=== PATIENT | female | born 1980 | race Caucasian/White ===

== ENCOUNTER 2017-09-30 17:17 | Emergency (ER) | payer MEDICAID, OTHER ==
[2017-09-30 17:35] VITALS: BMI 35.5
[2017-09-30 19:52] VITALS: RESP 20
[2017-09-30] MEDS ORDERED: Sodium Chloride 0.9% 1,000 ML IV ONE (20:04)
[2017-09-30 20:36] LABS: BASO # 0.1 K/uL (0.0-0.2); BASO % 0.8 % (0.0-2.0); EOS # 0.1 K/uL (0.0-0.7); EOS % 1.3 % (0.0-4.0); HEMATOCRIT 41.7 % (34.0-47.0); LYMPH # 2.1 K/uL (1.0-4.3); LYMPH % 23.2 % (20.0-40.0); MEAN CELL VOLUME 91.3 fL (81.0-99.0); MEAN CORPUSCULAR HEMOGLOBIN 31.1 pg (27.0-31.0); MEAN PLATELET VOLUME 9.6 fL (7.2-11.7); MONO # 0.7 K/uL (0.0-0.8); MONO % 7.1 % (0.0-10.0); RED CELL DISTRIBUTION WIDTH 13.8 % (11.5-14.5); WHITE BLOOD COUNT 9.2 K/uL (4.8-10.8)
[2017-09-30] MEDS ORDERED: Sodium Chloride 0.9% 1,000 ML ONE (20:43)
[2017-09-30 20:49] LABS: ALB/GLOB RATIO 1.2 (1.0-2.1); ALKALINE PHOSPHATASE 92 U/L (38-126); ALT/SGPT 36 U/L (9-52); AST/SGOT 24 U/L (14-36); BILIRUBIN,TOTAL 0.5 mg/dL (0.2-1.3); BLOOD UREA NITROGEN 8 mg/dL (7-17); CALCIUM 9.1 mg/dl (8.6-10.4); CARBON DIOXIDE 29 mmol/L (22-30); CHLORIDE 99 mmol/L (98-107); GFR AFRICAN-AMERICAN > 60; GLUCOSE,RANDOM 98 mg/dL (65-105); POTASSIUM 3.7 mmol/L (3.6-5.2); SODIUM 134 mmol/L (132-148); TOTAL PROTEIN 7.7 g/dL (6.3-8.3)
[2017-09-30 21:09] LABS: RBC URINE 17 /hpf (0-3); TRANSITIONAL EPITHIAL < 1 /hpf (0-3); URINE BACTERIA RARE (<OCC); URINE BILIRUBIN NEGATIVE (NEGATIVE); URINE COLOR Yellow (YELLOW); URINE GLUCOSE (UA) NORMAL (Normal); URINE KETONE NEGATIVE (NEGATIVE); URINE LEUKOCYTE ESTERASE NEG Leu/uL (Negative); URINE PROTEIN NEGATIVE (NEGATIVE); URINE UROBILINOGEN NORMAL mg/dL (0.2-1.0); WBC URINE 2 /hpf (0-5)
[2017-09-30 21:11] LABS: URINE BLOOD 2+ (NEGATIVE)
--- NOTE | 2017-09-30 21:21 | C.PDOC ---
History Of Present Illness 37 year old female presents to the ER with a complaint of cramping abdominal discomfort for the past week. Patient has been taking codiene base pain meds for chronic pain but no stool softeners. Denies fever, vomiting, or diarrhea. Time Seen by Provider: 09/30/17 19:28 Chief Complaint (Nursing): Abdominal Pain History Per: Patient History/Exam Limitations: no limitations Onset/Duration Of Symptoms: Days Current Symptoms Are (Timing): Still Present Location Of Pain/Discomfort: Diffuse Radiation Of Pain To:: None Quality Of Discomfort: Unable To Describe Associated Symptoms: denies: Fever, Vomiting, Diarrhea Exacerbating Factors: None Alleviating Factors: None Recent travel outside of the [place]: No Abnormal Vaginal Bleeding: No Past Medical History Reviewed: Historical Data, Nursing Documentation, Vital Signs Vital Signs: Last Vital Signs Temp 98.3 F 09/30/17 21:57 Pulse 88 09/30/17 21:57 Resp 20 09/30/17 21:57 BP 110/75 09/30/17 21:57 Pulse Ox 97 09/30/17 21:57 - Medical History PMH: Anxiety, Asthma, Bipolar Disorder, Depression, HTN, Migraine Surgical History: Cholecystectomy Family History: States: Unknown Family Hx - Social History Hx Tobacco Use: Yes Hx Alcohol Use: No Hx Substance Use: No - Immunization History Hx Tetanus Toxoid Vaccination: Yes Hx Influenza Vaccination: Yes Hx Pneumococcal Vaccination: Yes Review Of Systems Constitutional: Negative for: Fever Gastrointestinal: Positive for: Abdominal Pain. Negative for: Vomiting, Diarrhea Physical Exam - Physical Exam Appears: Non-toxic, No Acute Distress Skin: Normal Color, Warm, Dry Head: Atraumatic, Normacephalic Eye(s): bilateral: Normal Inspection Oral Mucosa: Moist Chest: Symmetrical, No Tenderness Cardiovascular: Rhythm Regular Respiratory: Normal Breath Sounds, No Rales, No Rhonchi, No Wheezing Gastrointestinal/Abdominal: Soft, Tenderness (Vaguely tender), No Guarding, No Rebound, Other (Obese, alternating dull and tympanic with percussion) Neurological/Psych: Oriented x3, Normal Speech ED Course And Treatment - Laboratory Results Result Diagrams: 09/30/17 20:33 09/30/17 20:33 Lab Interpretation: Normal (ua neg.) Urine POC: Negative O2 Sat by Pulse Oximetry: 98 Pulse Ox Interpretation: Normal - Radiology CXR: Interpreted by Me CXR Interpretation: Yes: No Acute Disease - Other Rad abd x 2 X-Ray: Interpreted by Me (+FOS) Progress Note: EKG, blood work, urinalysis, and obstuctive series ordered. Pepcid, toradol, and IV fluids administered. Reevaluation Time: 21:20 Reassessment Condition: Improved (remains asymptomatic.) Medical Decision Making Medical Decision Making: probably chronic constipation due to diet and chronic codeine pain meds diet and stool softners educated. Disposition Doctor Will See Patient In The: Office Counseled Patient/Family Regarding: Studies Performed, Diagnosis - Disposition Referrals: Kentrell Petit MD [Medical Doctor] - Disposition: HOME/ ROUTINE Disposition Time: 21:20 Condition: GOOD Additional Instructions: take daily stool softners or occasional laxatives as needed if you continue chronic Codeine for chronic pain as the narcotic pain relievers are very constipating. normal eval today negative. Drink a bottle of Mag Citrate (laxative) now for immediate relief. Followup with your PMD as needed. Instructions: Constipation (ED) Forms: [employer] (Czech) - Clinical Impression Clinical Impression: Abdominal pain, Constipation - Scribe Statement The provider has reviewed the documentation as recorded by the Scribe Shahid Rubalcava All medical record entries made by the Scribe were at my direction and personally dictated by me. I have reviewed the chart and agree that the record accurately reflects my personal performance of the history, physical exam, medical decision making, and the department course for this patient. I have also personally directed, reviewed, and agree with the discharge instructions and disposition.
[2017-09-30 21:58] VITALS: BP 110/75; PULSE 88; TEMP 98.3
[2017-10-01 03:00] VITALS: O2SAT 98
--- NOTE | 2017-10-01 07:19 | RAD ---
PROCEDURE: Radiographs of the chest and abdomen (obstructive series) HISTORY: abd pain COMPARISON: No prior. TECHNIQUE: AP radiograph of the chest, with upright and supine radiographs of the abdomen. FINDINGS: CHEST: Lungs: Clear. Cardiovascular: Normal size heart. No pulmonary vascular congestion. Pleura: No pleural fluid. No pneumothorax. Other findings: None. ABDOMEN AND PELVIS: Bowel: Unremarkable bowel gas pattern. No evidence of mechanical obstruction. Free air: None. Bones: Unremarkable. Other findings: Surgical clips are seen at the right upper quadrant abdomen. IMPRESSION: Unremarkable radiographs of chest and abdomen. No evidence of mechanical bowel obstruction. Surgical clips are seen the right upper quadrant abdomen.
--- NOTE | 2017-10-02 12:43 | CARD ---
APPROVED REPORT EKG Measurement Heart [id number] <Conclusion> Normal sinus rhythm with sinus arrhythmia Normal Electrocardiogram
== END 2017-09-30 22:05 | disposition home or self-care (01) ==
LOC: C.ER 17:17
DX: K59.00 Constipation, unspecified (principal); R10.9 Unspecified abdominal pain; I10 Essential (primary) hypertension; Z87.891 Personal history of nicotine dependence
CPT/HCPCS: 74022; 80053; 81001; 83690; 84484; 84703; 85025; 93005; 96361; 96374; 99285; J7040

== ENCOUNTER 2018-02-13 22:34 | Emergency (ER) | payer MEDICAID, OTHER ==
[2018-02-13 22:35] VITALS: BMI 35.5
[2018-02-13 22:45] VITALS: TEMP 98.8
[2018-02-13] MEDS ORDERED: Sodium Chloride 0.9% 500 ML IV ONE (23:02)
[2018-02-13 23:14] LABS: BASO # 0.1 K/uL (0.0-0.2); BASO % 0.9 % (0.0-2.0); EOS # 0.3 K/uL (0.0-0.7); EOS % 2.4 % (0.0-4.0); LYMPH % 31.9 % (20.0-40.0); MEAN CELL VOLUME 91.1 fL (81.0-99.0); MEAN CORPUSCULAR HEMOGLOBIN 31.5 pg (27.0-31.0); MEAN CORPUSCULAR HGB CONC 34.5 g/dL (33.0-37.0); MEAN PLATELET VOLUME 9.3 fL (7.2-11.7); MONO # 0.8 K/uL (0.0-0.8); MONO % 6.4 % (0.0-10.0); NEUT # 7.3 K/uL (1.8-7.0); NEUT % 58.4 % (50.0-75.0); RBC 3.81 Mil/uL (3.80-5.20); RED CELL DISTRIBUTION WIDTH 13.5 % (11.5-14.5); WHITE BLOOD COUNT 12.5 K/uL (4.8-10.8)
[2018-02-13] MEDS ORDERED: DiphenhydrAMINE 50 mg/ml Inj IVP STA (23:20)
[2018-02-13 23:28] LABS: ALBUMIN 3.5 g/dL (3.5-5.0); ALT/SGPT 26 U/L (9-52); AST/SGOT 21 U/L (14-36); BLOOD UREA NITROGEN 10 mg/dL (7-17); CALCIUM 9.1 mg/dl (8.6-10.4); GFR AFRICAN-AMERICAN > 60; GFR NON-AFRICAN AMERICAN > 60
[2018-02-13] MEDS ORDERED: DiphenhydrAMINE 50 mg/ml Inj ONE (23:29)
[2018-02-14] MEDS ORDERED: Morphine 4 MG/ML VIAL ONE (00:01)
--- NOTE | 2018-02-14 00:11 | CT ---
EXAM: CT Head Without Intravenous Contrast CLINICAL HISTORY: 37 years old, female; Pain; Headache; Patient HX: 02-19-16 images sent TECHNIQUE: Axial computed tomography images of the head/brain without intravenous contrast. All CT scans at this facility use one or more dose reduction techniques, viz.: automated exposure control; ma/kV adjustment per patient size (including targeted exams where dose is matched to indication; i.e. head); or iterative reconstruction technique. COMPARISON: CT - HEAD W/O CONTRAST 2016-02-19 10:31 FINDINGS: Brain: No hemorrhage. No significant white matter disease. No edema. Ventricles: No hydrocephalus. Bones: Skull is intact. Sinuses: No acute sinusitis. Mastoid air cells: No mastoid effusion. IMPRESSION: No CT evidence of acute intracranial abnormality.
[2018-02-14 00:12] LABS: SQUAMOUS EPITHIAL 5 /hpf (0-5); URINE BILIRUBIN NEGATIVE (NEGATIVE); URINE BLOOD 1+ (NEGATIVE); URINE CLARITY Clear (Clear); URINE COLOR Straw (YELLOW); URINE GLUCOSE (UA) NORMAL (Normal); URINE LEUKOCYTE ESTERASE NEG Leu/uL (Negative); URINE PROTEIN NEGATIVE (NEGATIVE); URINE UROBILINOGEN NORMAL mg/dL (0.2-1.0)
--- NOTE | 2018-02-14 00:26 | C.PDOC ---
History Of Present Illness 37 year old female with PMH asthma presents to the ER with a complaint of sore throat for the past 5 days, associated with neck pain, and headache. Patient states she was seen by her PMD Dr. Petit 4 days ago who started her on a z-pack which she finished today, however, pain persists. Reports subjective fever BARREL BANDER for which she took tylenol. States she got blisters to her lips yesterday. Denies sob, chest pain, change in vision, difficulty breathing, or difficulty swallowing. Time Seen by Provider: 02/13/18 22:48 Chief Complaint (Nursing): ENT Problem History Per: Patient History/Exam Limitations: no limitations Onset/Duration Of Symptoms: Days Current Symptoms Are (Timing): Still Present Location Of Pain: Throat, Headache, Other (Neck) Sick Contacts (Context): None Associated Symptoms: Fever, Sore Throat, Other (Headache, blisters on lips) Ear Symptoms: Bilateral: None Recent travel outside of the [place]: No Past Medical History Reviewed: Historical Data, Nursing Documentation, Vital Signs Vital Signs: Last Vital Signs Temp 98.8 F 02/13/18 22:42 Pulse 83 02/14/18 01:37 Resp 18 02/14/18 01:37 BP 108/70 02/14/18 01:37 Pulse Ox 96 02/14/18 01:37 - Medical History PMH: Anxiety, Asthma, Bipolar Disorder, Depression, HTN, Migraine Surgical History: Cholecystectomy Family History: States: Unknown Family Hx - Social History Hx Tobacco Use: Yes Hx Alcohol Use: No Hx Substance Use: No - Immunization History Hx Tetanus Toxoid Vaccination: Yes Hx Influenza Vaccination: Yes Hx Pneumococcal Vaccination: Yes Review Of Systems Constitutional: Positive for: Fever Eyes: Negative for: Vision Change ENT: Positive for: Throat Pain, Other (Blisters on lips). Negative for: Throat Swelling Respiratory: Negative for: Shortness of Breath Musculoskeletal: Positive for: Neck Pain Neurological: Positive for: Headache Physical Exam - Physical Exam Appears: Non-toxic, Other (uncomfortable) Skin: Normal Color, Warm, Dry Head: Atraumatic, Normacephalic Eye(s): bilateral: Normal Inspection, EOMI Ear(s): Bilateral: Normal Nose: Normal Oral Mucosa: Moist Lips: Other (multiple 2mm ulcerations on erythematous base to top lip with surrounding swelling, some on bottom lip) Throat: Normal, No Erythema, No Exudate Neck: Normal ROM, No Midline Cervical Tenderness, Paracervical Tenderness (with muscle spasm) Lymphatic: Normal Exam Chest: Symmetrical, No Tenderness Cardiovascular: Rhythm Regular Respiratory: Normal Breath Sounds, No Rales, No Rhonchi, No Wheezing Gastrointestinal/Abdominal: Soft, No Tenderness Extremity: Normal ROM Neurological/Psych: Oriented x3, Normal Speech, Normal Cognition, Normal Cranial Nerves (2-12 intact, no focal deficits), Normal Sensation ED Course And Treatment - Laboratory Results Result Diagrams: 02/13/18 23:10 02/13/18 23:10 O2 Sat by Pulse Oximetry: 96 (room air) Pulse Ox Interpretation: Normal - CT Scan/US CT Head Other Rad Studies (CT/US): Read By Radiologist, Radiology Report Reviewed CT/US Interpretation: EXAM: CT Head Without Intravenous Contrast. CLINICAL HISTORY: 37 years old, female; Pain; Headache; Patient HX: 02-19-16 images sent. TECHNIQUE: Axial computed tomography images of the head/brain without intravenous contrast. All CT scans at. this facility use one or more dose reduction techniques, viz.: automated exposure control; ma/kV. adjustment per patient size (including targeted exams where dose is matched to indication; i.e. head);. or iterative reconstruction technique. COMPARISON: CT - HEAD W/ O CONTRAST 2016-02-19 10:31. FINDINGS: Brain: No hemorrhage. No significant white matter disease. No edema. Ventricles: No hydrocephalus. Bones: Skull is intact. Sinuses: No acute sinusitis. Mastoid air cells: No mastoid effusion. IMPRESSION: No CT evidence of acute intracranial abnormality. CT Neck Other Rad Studies (CT/US): Read By Radiologist, Radiology Report Reviewed CT/US Interpretation: EXAM: CT Neck Without Intravenous Contrast. CLINICAL HISTORY: 37 years old, female; Pain; Painful swallowing. TECHNIQUE: Axial computed tomography images of the neck without intravenous contrast. All CT scans at this. facility use one or more dose reduction techniques, viz.: automated exposure control; ma/kV. adjustment per patient size (including targeted exams where dose is matched to indication; i.e. head);. or iterative reconstruction technique. Coronal and sagittal reformatted images were created and reviewed. COMPARISON: No relevant prior studies available. FINDINGS: Limitations: Lack of intravenous contrast. Oropharynx: Unremarkable. No significant tonsillar enlargement. Hypopharynx: Unremarkable. Larynx: Unremarkable. Normal epiglottis. Trachea: Unremarkable. Retropharyngeal space : Unremarkable. Submandibular/parotid glands: Unremarkable. Glands are normal in size. Thyroid: Unremarkable. No enlarged or calcified nodules. Bones/joints : No acute fracture. Early degenerative changes of cervical spine. Soft tissues : Unremarkable. Vasculature: No acute findings. Lymph nodes: Multiple shotty cervical lymph nodes. Sinuses: Mild focal mucosal thickening of maxillary sinuses, left greater than right. Minimal focal. mucosal thickening of RIGHT sphenoid sinus. No air-fluid levels. Mastoid air cells: No mastoid effusion. Orbits: Unremarkable as visualized. Dental: Several periapical lucencies compatible with dental disease. Lung apices: Unremarkable as visualized. IMPRESSION: 1. No acute findings. 2. Non-acute findings are described above. Progress Note: CT head, CT neck, blood work, rapid strep, and urinalysis ordered. Benadryl, morphine, solumedrol, and IV fluids administered. On re- evaluation, pt notes she feels better, does not want any additional medication. Notes headache has resolved, neck pain has improved. Tolerating PO. No difficulty breathing or swallowing. REmains afebrile. Pt was seen and evaluated by Dr Mcelroy, agreed upon plan, treatment and discharge. Disposition - Disposition Disposition: HOME/ ROUTINE Disposition Time: 01:02 Condition: STABLE Additional Instructions: Follow up with your primary medical doctor or clinic in 2-5 days for further evaluation. Take medications as prescribed. Return to the emergency department at any time if symptoms persist or worsen. Prescriptions: Acyclovir [Zovirax] 800 mg PO TID 10 Days tab Cyclobenzaprine [Cyclobenzaprine HCl] 10 mg PO TID PRN #20 tab PRN Reason: Muscle Spasm DiphenhydrAMINE [Benadryl] 25 mg PO Q6 #20 cap Instructions: Headache, Adult (DC) Forms: [employer] (Malagasy) - Clinical Impression Clinical Impression: Torticollis, Viral illness - PA / GENERAL ACTIVITIES THERAPIST / Resident Statement MD/DO has reviewed & agrees with the documentation as recorded. - Scribe Statement The provider has reviewed the documentation as recorded by the Scribe Shahid Rubalcava All medical record entries made by the Scribe were at my direction and personally dictated by me. I have reviewed the chart and agree that the record accurately reflects my personal performance of the history, physical exam, medical decision making, and the department course for this patient. I have also personally directed, reviewed, and agree with the discharge instructions and disposition.
--- NOTE | 2018-02-14 00:34 | CT ---
EXAM: CT Neck Without Intravenous Contrast CLINICAL HISTORY: 37 years old, female; Pain; Painful swallowing TECHNIQUE: Axial computed tomography images of the neck without intravenous contrast. All CT scans at this facility use one or more dose reduction techniques, viz.: automated exposure control; ma/kV adjustment per patient size (including targeted exams where dose is matched to indication; i.e. head); or iterative reconstruction technique. Coronal and sagittal reformatted images were created and reviewed. COMPARISON: No relevant prior studies available. FINDINGS: Limitations: Lack of intravenous contrast. Oropharynx: Unremarkable. No significant tonsillar enlargement. Hypopharynx: Unremarkable. Larynx: Unremarkable. Normal epiglottis. Trachea: Unremarkable. Retropharyngeal space: Unremarkable. Submandibular/parotid glands: Unremarkable. Glands are normal in size. Thyroid: Unremarkable. No enlarged or calcified nodules. Bones/joints: No acute fracture. Early degenerative changes of cervical spine. Soft tissues: Unremarkable. Vasculature: No acute findings. Lymph nodes: Multiple shotty cervical lymph nodes. Sinuses: Mild focal mucosal thickening of maxillary sinuses, left greater than right. Minimal focal mucosal thickening of RIGHT sphenoid sinus. No air-fluid levels. Mastoid air cells: No mastoid effusion. Orbits: Unremarkable as visualized. Dental: Several periapical lucencies compatible with dental disease. Lung apices: Unremarkable as visualized. IMPRESSION: 1.No acute findings. 2.Non-acute findings are described above.
[2018-02-14 01:38] VITALS: BP 108/70; PULSE 83; RESP 18; O2SAT 96
== END 2018-02-14 01:37 | disposition home or self-care (01) ==
LOC: C.ER 22:34
DX: M43.6 Torticollis (principal); B34.9 Viral infection, unspecified
CPT/HCPCS: 70450; 70490; 80053; 81001; 84703; 85025; 86308; 87070; 87430; 96374; 96375; 99284; J1200; J2270; J2930; J7040

== ENCOUNTER 2018-03-18 09:31 | Emergency (ER) | payer OTHER ==
[2018-03-18 09:34] VITALS: BMI 31.2
[2018-03-18 11:12] LABS: BASO # 0.1 K/uL (0.0-0.2); BASO % 0.7 % (0.0-2.0); EOS # 0.3 K/uL (0.0-0.7); EOS % 2.9 % (0.0-4.0); HEMOGLOBIN 12.5 g/dL (11.0-16.0); LYMPH # 3.6 K/uL (1.0-4.3); LYMPH % 32.7 % (20.0-40.0); MEAN CELL VOLUME 95.1 fL (81.0-99.0); MEAN CORPUSCULAR HGB CONC 34.7 g/dL (33.0-37.0); MEAN PLATELET VOLUME 9.7 fL (7.2-11.7); MONO # 0.6 K/uL (0.0-0.8); MONO % 5.8 % (0.0-10.0); NEUT # 6.4 K/uL (1.8-7.0); NEUT % 57.9 % (50.0-75.0); RBC 3.78 Mil/uL (3.80-5.20); RED CELL DISTRIBUTION WIDTH 15.7 % (11.5-14.5)
[2018-03-18 11:18] LABS: HCG,QUALITATIVE URINE NEGATIVE (NEGATIVE)
[2018-03-18 11:22] LABS: SQUAMOUS EPITHIAL 3 /hpf (0-5); URINE BILIRUBIN NEGATIVE (NEGATIVE); URINE BLOOD 1+ (NEGATIVE); URINE CLARITY Clear (Clear); URINE COLOR Yellow (YELLOW); URINE GLUCOSE (UA) NORMAL (Normal); URINE LEUKOCYTE ESTERASE NEG Leu/uL (Negative); URINE PROTEIN NEGATIVE (NEGATIVE)
--- NOTE | 2018-03-18 11:22 | RAD ---
PROCEDURE: Radiographs of the chest and abdomen HISTORY: abd pain COMPARISON: Obstructive series dated 09/30/2017. TECHNIQUE: AP radiograph of the chest, with supine radiograph of the abdomen. FINDINGS: CHEST: Lungs: Clear. Cardiovascular: Normal size heart. No pulmonary vascular congestion. Pleura: No pleural fluid. No pneumothorax. Other findings: None. ABDOMEN AND PELVIS: Bowel: Prominent amount of retained colonic stool. Unremarkable bowel gas pattern. No evidence of mechanical obstruction. Bones: Unremarkable. Other findings: Right upper quadrant surgical clips. IMPRESSION: Unremarkable radiographs of chest and abdomen. Prominent amount of retained colonic stool.
[2018-03-18 11:27] LABS: ALB/GLOB RATIO 1.4 (1.0-2.1); ALT/SGPT 51 U/L (9-52); AST/SGOT 41 U/L (14-36); BLOOD UREA NITROGEN 11 mg/dL (7-17); CALCIUM 8.7 mg/dl (8.6-10.4); GFR AFRICAN-AMERICAN > 60; GFR NON-AFRICAN AMERICAN > 60; LIPASE 39 U/L (23-300)
[2018-03-18] MEDS ORDERED: Sodium Chloride 0.9% 1,000 ML IV ONE (11:35)
--- NOTE | 2018-03-18 11:35 | C.PDOC ---
History Of Present Illness 37 y/o female with Hx of diverticulitis presents to ED for complaints of lower abdominal pain associated with nausea and bloody urine that began 1 week ago. Patient reports pain radiates to lower back. Patient states she saw her PCP 1 week ago. Patient states she has an appointment on the for an Ultrasound, however, her pain worsened which prompted the ER visit. Time Seen by Provider: 03/18/18 10:07 Chief Complaint (Nursing): Female Genitourinary History Per: Patient History/Exam Limitations: no limitations Onset/Duration Of Symptoms: Days Current Symptoms Are (Timing): Still Present Location Of Pain/Discomfort: LUQ, LLQ Radiation Of Pain To:: Back Quality Of Discomfort: "Pain" Associated Symptoms: Nausea. denies: Fever, Chills, Vomiting Exacerbating Factors: None Alleviating Factors: None Last Bowel Movement: Today Recent travel outside of the [place]: No Abnormal Vaginal Bleeding: No Past Medical History Reviewed: Historical Data, Nursing Documentation, Vital Signs Vital Signs: Last Vital Signs Temp 98.2 F 03/18/18 15:22 Pulse 87 03/18/18 15:22 Resp 18 03/18/18 15:22 BP 121/80 03/18/18 15:22 Pulse Ox 98 03/18/18 15:22 - Medical History PMH: Anxiety, Asthma, Bipolar Disorder, Depression, HTN, Migraine Surgical History: Cholecystectomy Family History: States: Unknown Family Hx - Social History Hx Tobacco Use: Yes Hx Alcohol Use: No Hx Substance Use: No - Immunization History Hx Tetanus Toxoid Vaccination: Yes Hx Influenza Vaccination: Yes Hx Pneumococcal Vaccination: Yes Review Of Systems Constitutional: Negative for: Fever, Chills Gastrointestinal: Positive for: Nausea, Abdominal Pain (Lower abdominal; radiates to back ). Negative for: Vomiting, Diarrhea, Constipation Genitourinary: Positive for: Hematuria. Negative for: Dysuria Skin: Negative for: Rash Neurological: Negative for: Weakness, Numbness Physical Exam - Physical Exam Appears: Non-toxic, No Acute Distress Skin: Warm, Dry Head: Atraumatic, Normacephalic Eye(s): bilateral: Normal Inspection, PERRL, EOMI Oral Mucosa: Moist Neck: Supple Chest: Symmetrical, No Tenderness Cardiovascular: Rhythm Regular, No Murmur Respiratory: Normal Breath Sounds, No Decreased Breath Sounds, No Rales, No Rhonchi, No Wheezing Gastrointestinal/Abdominal: Soft, Tenderness (Mild inconsistent lower abdomen ) Extremity: Normal ROM, No Deformity Extremity: Bilateral: Atraumatic, Normal Color And Temperature, Normal ROM Pulses: Left Radial: Normal, Right Radial: Normal Neurological/Psych: Oriented x3 (Awake and alert), Normal Speech, Other (No focal deficits ) Gait: Steady ED Course And Treatment - Laboratory Results Result Diagrams: 03/18/18 10:57 03/18/18 10:57 O2 Sat by Pulse Oximetry: 99 (RA) Pulse Ox Interpretation: Normal - Other Rad Chext/Abdomen X-Ray X-Ray: Viewed By Me, Read By Radiologist Interpretation: PROCEDURE: Radiographs of the chest and abdomen. HISTORY: abd pain. COMPARISON: Obstructive series dated 09/30/2017. TECHNIQUE: AP radiograph of the chest, with supine radiograph of the abdomen. FINDINGS: CHEST: Lungs: Clear. Cardiovascular: Normal size heart. No pulmonary vascular congestion. Pleura: No pleural fluid. No pneumothorax. Other findings: None. ABDOMEN AND PELVIS: Bowel: Prominent amount of retained colonic stool. Unremarkable bowel gas pattern. No evidence of mechanical obstruction. Bones: Unremarkable. Other findings: Right upper quadrant surgical clips. IMPRESSION : Unremarkable radiographs of chest and abdomen. Prominent amount of retained colonic stool. Medical Decision Making Medical Decision Making: Administered pepcid, zofran, lidocaine and IV fluids. Patient was offered pelvic exam, exams declined at this time, and stating that she has no vaginal bleeding, discharged or other pelvic complaints. Ordered blood work, CXR, Abdomen X-Ray, and urinalysis. On re-exam, the patient reports improvement of symptoms. Abdomen is soft, non- tender and the patient is tolerating PO well. Lungs are CTA, heart is RRR. Patient is ambulatory in the ED with steady gait. Follow up with the medical doctor within 1-2 days. return if worsened. Disposition - Disposition Referrals: Kentrell Petit MD [Medical Doctor] - Disposition: HOME/ ROUTINE Disposition Time: 14:46 Condition: STABLE Additional Instructions: Follow up with the medical doctor within 1-2 days. Return if worsened. Prescriptions: Acetaminophen [Tylenol] 325 mg PO Q6 PRN #30 tab PRN Reason: Pain, Mild (1-3) Ibuprofen [Motrin Tab] 800 mg PO TID #20 tab Instructions: Ovarian Cysts, Gastritis Forms: [employer] (Kiswahili) - Clinical Impression Clinical Impression: Ovarian cyst, Abdominal pain - PA / [employer] WORKER / Resident Statement MD/DO has reviewed & agrees with the documentation as recorded. - Scribe Statement The provider has reviewed the documentation as recorded by the Miller Hogan All medical record entries made by the Miller were at my direction and personally dictated by me. I have reviewed the chart and agree that the record accurately reflects my personal performance of the history, physical exam, medical decision making, and the department course for this patient. I have also personally directed, reviewed, and agree with the discharge instructions and disposition.
[2018-03-18] MEDS ORDERED: Lidocaine 109 MG in Sodium Chloride 0.9% 100 ML IV STA (11:36)
[2018-03-18] MEDS ORDERED: Sodium Chloride 0.9% 1,000 ML ONE (11:57)
[2018-03-18] MEDS ORDERED: Iohexol 240 (50 ml) ONE (12:15)
[2018-03-18] MEDS ORDERED: Morphine 4 MG/ML VIAL ONE (14:03)
--- NOTE | 2018-03-18 14:10 | CT ---
PROCEDURE: CT Abdomen and Pelvis with contrast HISTORY: lower abd pain, r/o diverticulitis vs renal stone COMPARISON: None. TECHNIQUE: Contrast dose: 100 mL Visipaque 320 Radiation dose: Total exam DLP = 747.7 mGy-cm. This CT exam was performed using one or more of the following dose reduction techniques: Automated exposure control, adjustment of the mA and/or kV according to patient size, and/or use of iterative reconstruction technique. FINDINGS: LOWER THORAX: Mild subsegmental lingular atelectasis. No focal consolidation. Heart size normal. LIVER: Unremarkable. No gross lesion or ductal dilatation. GALLBLADDER AND BILE DUCTS: Prior cholecystectomy with surgical clips in place. PANCREAS: Unremarkable. No gross lesion or ductal dilatation. SPLEEN: Unremarkable. ADRENALS: Unremarkable. No mass. KIDNEYS AND URETERS: Unremarkable. No hydronephrosis. No solid mass. VASCULATURE: Unremarkable. No aortic aneurysm. BOWEL: Scattered colonic diverticulae. No obstruction. No gross mural thickening. APPENDIX: Normal appendix. PERITONEUM: Unremarkable. No free fluid. No free air. LYMPH NODES: Unremarkable. No enlarged lymph nodes. BLADDER: Unremarkable. REPRODUCTIVE: Dominant right ovarian follicle measuring 2.1 cm. BONES: No acute fracture. OTHER FINDINGS: None. IMPRESSION: No acute abdominal pelvic pathology. No obstructive uropathy or evidence of recently passed genitourinary calculus. Scattered colonic diverticula without evidence for acute diverticulitis.
[2018-03-18 15:24] VITALS: BP 121/80; PULSE 87; RESP 18; TEMP 98.2
[2018-03-19 08:32] VITALS: O2SAT 99
== END 2018-03-18 15:22 | disposition home or self-care (01) ==
LOC: C.ER 09:31
DX: N83.209 Unspecified ovarian cyst, unspecified side (principal); R10.32 Left lower quadrant pain
CPT/HCPCS: 74022; 74177; 80053; 81001; 83690; 84703; 85025; 96361; 96374; 96375; 99285; J2001; J2270; J2405; J7030

== ENCOUNTER 2018-03-20 09:57 | Emergency (ER) | payer OTHER ==
[2018-03-20 09:57] VITALS: BMI 31.2
[2018-03-20 10:04] VITALS: O2SAT 99
[2018-03-20 10:27] LABS: HCG,QUALITATIVE URINE NEGATIVE (NEGATIVE)
[2018-03-20 10:30] LABS: SQUAMOUS EPITHIAL 4 /hpf (0-5); URINE BILIRUBIN NEGATIVE (NEGATIVE); URINE BLOOD 2+ (NEGATIVE); URINE CLARITY Clear (Clear); URINE COLOR Yellow (YELLOW); URINE GLUCOSE (UA) NORMAL (Normal); URINE LEUKOCYTE ESTERASE NEG Leu/uL (Negative); URINE PROTEIN NEGATIVE (NEGATIVE); URINE UROBILINOGEN NORMAL mg/dL (0.2-1.0)
--- NOTE | 2018-03-20 10:47 | C.PDOC ---
History Of Present Illness 37 year old female, whose PMHx includes Migraines, presents to the ED for evaluation of a headache which had sudden onset at around 0900 today. Patient states she went to use the bathroom when she suddenly had pain to the back of her head which radiates to the front. She states current symptoms are different than her usual migraine headaches. Patient also reports nausea and denies fever , chills, vision change, photophobia or facial pain. Time Seen by Provider: 03/20/18 10:31 Chief Complaint (Nursing): Headache History Per: Patient History/Exam Limitations: no limitations Onset/Duration Of Symptoms: Hrs, Sudden Onset Current Symptoms Are (Timing): Still Present Quality: "Pain" Associated Symptoms: Nausea. denies: Photophobia, Blurred Vision Past Medical History Reviewed: Historical Data, Nursing Documentation, Vital Signs Vital Signs: Last Vital Signs Temp 98.9 F 03/20/18 13:07 Pulse 60 03/20/18 13:07 Resp 20 03/20/18 13:07 BP 133/72 03/20/18 13:07 Pulse Ox 99 03/20/18 13:10 - Medical History PMH: Anxiety, Asthma, Bipolar Disorder, Depression, HTN, Migraine Denies: Diabetes, Hepatitis, HIV, Seizures, Sexually Transmitted Disease Surgical History: Cholecystectomy Family History: States: Unknown Family Hx - Social History Hx Tobacco Use: Yes Hx Alcohol Use: No Hx Substance Use: No - Immunization History Hx Tetanus Toxoid Vaccination: Yes Hx Influenza Vaccination: Yes Hx Pneumococcal Vaccination: Yes Review Of Systems Constitutional: Negative for: Fever, Chills Eyes: Negative for: Vision Change, Other (photophobia ) Gastrointestinal: Positive for: Nausea. Negative for: Vomiting Physical Exam - Physical Exam Appears: Non-toxic, No Acute Distress Skin: Normal Color, Warm, Dry Head: Atraumatic, Normacephalic, No Tenderness, No Other (temporal artery tenderness ) Eye(s): bilateral: Normal Inspection Ear(s): Bilateral: Normal Nose: Normal, No Discharge Oral Mucosa: Moist Neck: Normal ROM, Supple Chest: Symmetrical, No Deformity, No Tenderness Cardiovascular: Rhythm Regular, No Murmur Respiratory: Normal Breath Sounds, No Rales, No Rhonchi, No Wheezing Gastrointestinal/Abdominal: Bowel Sounds (active), Soft, No Tenderness Extremity: Normal ROM, Capillary Refill (less than 2 seconds ) Neurological/Psych: Oriented x3, Normal Speech, Normal Cognition, Normal Motor, Normal Sensation Gait: Steady ED Course And Treatment - Laboratory Results Result Diagrams: 03/20/18 11:17 03/20/18 11:17 O2 Sat by Pulse Oximetry: 99 (on RA) Pulse Ox Interpretation: Normal - CT Scan/US CT head w/o contrast Other Rad Studies (CT/US): Read By Radiologist, Radiology Report Reviewed CT/US Interpretation: PROCEDURE: CT HEAD WITHOUT CONTRAST. HISTORY: headache , nausea. COMPARISON: 02/13/2018. TECHNIQUE: Axial computed tomography images were obtained through the head/brain without intravenous contrast. Radiation dose: Total exam DLP = 973.15 mGy-cm. This CT exam was performed using one or more of the following dose reduction techniques: Automated exposure control, adjustment of the mA and/or kV according to patient size, and/ or use of iterative reconstruction technique. FINDINGS: HEMORRHAGE: No intracranial hemorrhage. BRAIN: No mass effect or edema. No atrophy or chronic microvascular ischemic changes. VENTRICLES: Unremarkable. No hydrocephalus. CALVARIUM: Unremarkable. PARANASAL SINUSES: Unremarkable as visualized. No significant inflammatory changes. MASTOID AIR CELLS: Unremarkable as visualized. No inflammatory changes. OTHER FINDINGS: None. IMPRESSION: Normal CT of the Head. Medical Decision Making Medical Decision Making: Old records reviewed the patient was last seen in this ED 2 days ago for abdominal pain, had CT scan which was negative and the patient was discharged home. Progress: CT Head and urinalysis ordered and reviewed. Benadryl IVP, Reglan IVPB, and IV Fluids administered. On first re-exam, the patient reports that the pain improvement slightly but still present. Fiorcet PO ordered. On re-exam, the patient reports improvement of symptoms. Lungs are CTA, heart is RRR, abdomen is soft, non-tender and tolerating PO well. Ambulatory in the ED with steady gait. Follow up with the medical doctor within 1-2 days. Return if worsened. Disposition - Disposition Referrals: [facility] [Outside] Disposition: HOME/ ROUTINE Disposition Time: 13:01 Condition: GOOD Additional Instructions: Follow up with the medical doctor within 1-2 days. Return if worsened. 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 - Scribe Statement The provider has reviewed the documentation as recorded by the Scribe All medical record entries made by the Scribe were at my direction and personally dictated by me. I have reviewed the chart and agree that the record accurately reflects my personal performance of the history, physical exam, medical decision making, and the department course for this patient. I have also personally directed, reviewed, and agree with the discharge instructions and disposition.
[2018-03-20] MEDS ORDERED: DiphenhydrAMINE 50 mg/ml Inj IVP STA (11:04)
[2018-03-20] MEDS ORDERED: Sodium Chloride 0.9% 500 ML IV ONE (11:07)
[2018-03-20] MEDS ORDERED: DiphenhydrAMINE 50 mg/ml Inj ONE (11:18)
[2018-03-20] MEDS ORDERED: Sodium Chloride 0.9% 1,000 ML ONE (11:18)
[2018-03-20 11:24] LABS: BASO # 0.1 K/uL (0.0-0.2); BASO % 0.5 % (0.0-2.0); EOS # 0.1 K/uL (0.0-0.7); EOS % 0.8 % (0.0-4.0); HEMOGLOBIN 12.8 g/dL (11.0-16.0); LYMPH # 1.7 K/uL (1.0-4.3); LYMPH % 13.5 % (20.0-40.0); MEAN CELL VOLUME 94.1 fL (81.0-99.0); MEAN CORPUSCULAR HEMOGLOBIN 32.2 pg (27.0-31.0); MEAN CORPUSCULAR HGB CONC 34.3 g/dL (33.0-37.0); MEAN PLATELET VOLUME 9.5 fL (7.2-11.7); MONO # 0.6 K/uL (0.0-0.8); MONO % 5.1 % (0.0-10.0); NEUT % 80.1 % (50.0-75.0); RBC 3.98 Mil/uL (3.80-5.20); RED CELL DISTRIBUTION WIDTH 15.5 % (11.5-14.5); WHITE BLOOD COUNT 12.5 K/uL (4.8-10.8)
[2018-03-20 11:34] LABS: ALB/GLOB RATIO 1.4 (1.0-2.1); ALBUMIN 4.2 g/dL (3.5-5.0); ALT/SGPT 45 U/L (9-52); AST/SGOT 29 U/L (14-36); BLOOD UREA NITROGEN 9 mg/dL (7-17); CALCIUM 9.6 mg/dl (8.6-10.4); GFR AFRICAN-AMERICAN > 60; GFR NON-AFRICAN AMERICAN > 60
--- NOTE | 2018-03-20 11:47 | CT ---
PROCEDURE: CT HEAD WITHOUT CONTRAST. HISTORY: headache, nausea COMPARISON: 02/13/2018 TECHNIQUE: Axial computed tomography images were obtained through the head/brain without intravenous contrast. Radiation dose: Total exam DLP = 973.15 mGy-cm. This CT exam was performed using one or more of the following dose reduction techniques: Automated exposure control, adjustment of the mA and/or kV according to patient size, and/or use of iterative reconstruction technique. FINDINGS: HEMORRHAGE: No intracranial hemorrhage. BRAIN: No mass effect or edema. No atrophy or chronic microvascular ischemic changes. VENTRICLES: Unremarkable. No hydrocephalus. CALVARIUM: Unremarkable. PARANASAL SINUSES: Unremarkable as visualized. No significant inflammatory changes. MASTOID AIR CELLS: Unremarkable as visualized. No inflammatory changes. OTHER FINDINGS: None. IMPRESSION: Normal CT of the Head.
[2018-03-20] MEDS ORDERED: Apap-Butalbital-Caffeine 325-50-40mg Tab PO STA (12:18)
[2018-03-20] MEDS ORDERED: Dexamethasone 4 mg/1 ml IVP STA (12:22)
[2018-03-20] MEDS ORDERED: Apap-Butalbital-Caffeine 325-50-40mg Tab ONE (12:37)
[2018-03-20 13:08] VITALS: BP 133/72; PULSE 60; RESP 20; TEMP 98.9
== END 2018-03-20 13:18 | disposition home or self-care (01) ==
LOC: C.ER 09:57
DX: R51 Headache (principal); I10 Essential (primary) hypertension; Z72.0 Tobacco use
CPT/HCPCS: 70450; 80053; 81001; 84703; 85025; 96374; 96375; 99285; J1100; J1200; J2765; J7040

== ENCOUNTER 2018-09-24 19:10 | Emergency (ER) | payer MEDICAID, OTHER ==
[2018-09-24 19:11] VITALS: BMI 31.2
[2018-09-24 19:24] VITALS: BP 133/86; PULSE 70; RESP 20; TEMP 98.6; O2SAT 98
--- NOTE | 2018-09-24 20:02 | C.PDOC ---
History Of Present Illness 38 year old female with a history of ganglion cyst presents to the emergency department with complaints of four weeks of pain to the right wrist with some numbness and tingling to the right 4th and 5th digits. Patient denies trauma, and was referred to a hand specialist on 10-13-18, but does not want to wait that long. Time Seen by Provider: 09/24/18 19:34 Chief Complaint (Nursing): Finger,Hand,&Wrist History Per: Patient History/Exam Limitations: no limitations Onset/Duration Of Symptoms: Other (four weeks) Quality: "Pain", Other (tingling, numbness) Past Medical History Reviewed: Historical Data, Nursing Documentation, Vital Signs Vital Signs: Last Vital Signs Temp 98.6 F 09/24/18 19:19 Pulse 70 09/24/18 19:19 Resp 20 09/24/18 19:19 BP 133/86 09/24/18 19:19 Pulse Ox 98 09/24/18 19:19 - Medical History PMH: Anxiety, Asthma, Bipolar Disorder, Depression, HTN, Migraine Denies: Diabetes, Hepatitis, HIV, Seizures, Sexually Transmitted Disease Surgical History: Cholecystectomy Family History: States: No Known Family Hx - Social History Hx Tobacco Use: Yes Hx Alcohol Use: No Hx Substance Use: No - Immunization History Hx Tetanus Toxoid Vaccination: No Hx Influenza Vaccination: No Hx Pneumococcal Vaccination: No Review Of Systems Except As Marked, All Systems Reviewed And Found Negative. Constitutional: Negative for: Fever, Chills Musculoskeletal: Positive for: Hand Pain (right wrist) Neurological: Positive for: Numbness, Other (tingling) Physical Exam - Physical Exam Appears: Well, Non-toxic, No Acute Distress Skin: Normal Color, Warm, Dry Head: Atraumatic, Normacephalic Eye(s): bilateral: Normal Inspection, PERRL, EOMI Neck: Normal, Supple Extremity: Normal ROM (at the right wrist), Capillary Refill (< 2 seconds), No Swelling (of the wrist and hand), Other (ganglion cyst to the dorsal and radial aspect of the right wrist. No erythema. ) Pulses: Left Radial: Normal, Right Radial: Normal Neurological/Psych: Oriented x3, Normal Speech, Normal Cognition, Normal Motor, Normal Sensation ED Course And Treatment O2 Sat by Pulse Oximetry: 98 (RA) Pulse Ox Interpretation: Normal Medical Decision Making Medical Decision Making: Patient instructed to continue using NSAIDs and vinnie wrap. Disposition Counseled Patient/Family Regarding: Diagnosis, Need For Followup, Rx Given, Smoking Cessation - Disposition Referrals: Romeo Portillo MD [Staff Provider] - Disposition: HOME/ ROUTINE Disposition Time: 20:00 Condition: STABLE Additional Instructions: Please follow up with PMD/ Hand Take motrin as directed Return to ER if worse Prescriptions: Ibuprofen [Motrin Tab] 800 mg PO QID #20 tab Instructions: Ganglion Cyst (DC) Forms: Gen Discharge Inst Slovenian, [employer] (Burundian), Work Excuse - Clinical Impression Clinical Impression: Ganglion cyst, Ganglion cyst of dorsum of right wrist - PA / INSTRUCTOR TAP DANCING / Resident Statement MD/DO has reviewed & agrees with the documentation as recorded. - Scribe Statement The provider has reviewed the documentation as recorded by the Scribe (Pito Rae) All medical record entries made by the Scribe were at my direction and personally dictated by me. I have reviewed the chart and agree that the record accurately reflects my personal performance of the history, physical exam, medical decision making, and the department course for this patient. I have also personally directed, reviewed, and agree with the discharge instructions and disposition.
== END 2018-09-24 20:07 | disposition home or self-care (01) ==
LOC: C.ER 19:10
DX: M67.431 Ganglion, right wrist (principal); I10 Essential (primary) hypertension; Z72.0 Tobacco use

== ENCOUNTER 2019-03-05 08:32 | Emergency (ER) | payer MEDICAID, OTHER ==
[2019-03-05 08:32] VITALS: BMI 31.2
[2019-03-05 08:39] VITALS: RESP 18; TEMP 97.7
[2019-03-05] MEDS ORDERED: Sodium Chloride 0.9% 1,000 ML IV ONE (09:26)
[2019-03-05] MEDS ORDERED: Alum-Mag Hydrox-Simethicone Susp (30 mL) PO STA (09:26)
[2019-03-05] MEDS ORDERED: Sodium Chloride 0.9% 1,000 ML ONE (09:33)
[2019-03-05] MEDS ORDERED: Aluminum Hydroxide/Magnesium Hydroxide Susp (30 mL) ONE (09:33)
--- NOTE | 2019-03-05 09:39 | C.PDOC ---
History Of Present Illness 38 y/o female pt with hx of gastritis presents to the ER c/o epigastric abdominal pain for x1 week. Associated sx includes nausea and pain radiating to her back. Pt reports the pain feels similar to gastritis but stronger in intensity. Pt tried dietary modification, debbie-seltzer and tums with no relief. Pt denies diarrhea, fever, dysuria, hematuria, chest pain and SOB. Time Seen by Provider: 03/05/19 08:43 Chief Complaint (Nursing): Abdominal Pain History Per: Patient History/Exam Limitations: no limitations Onset/Duration Of Symptoms: Days (x1 week) Current Symptoms Are (Timing): Still Present Past Medical History Reviewed: Historical Data, Nursing Documentation, Vital Signs Vital Signs: Last Vital Signs Temp 97.7 F 03/05/19 08:37 Pulse 86 03/05/19 08:37 Resp 18 03/05/19 08:37 BP 138/90 03/05/19 08:37 Pulse Ox 99 03/05/19 08:37 Primary Care Provider: Karan Zelaya Medical History PMH: Anxiety, Asthma, Bipolar Disorder, Depression, HTN, Migraine Surgical History: Cholecystectomy Family History: States: Unknown Family Hx - Social History Hx Tobacco Use: Yes Hx Alcohol Use: No Hx Substance Use: No - Immunization History Hx Tetanus Toxoid Vaccination: No Hx Influenza Vaccination: No Hx Pneumococcal Vaccination: No Review Of Systems Constitutional: Negative for: Fever Cardiovascular: Negative for: Chest Pain Respiratory: Negative for: Shortness of Breath Gastrointestinal: Positive for: Nausea, Abdominal Pain (epigastric ). Negative for: Diarrhea Genitourinary: Negative for: Dysuria, Hematuria Musculoskeletal: Positive for: Back Pain (radiated from abdominal pain ) Physical Exam - Physical Exam Appears: Non-toxic, Other (uncomfortable ) Skin: Warm, Dry Head: Normacephalic Eye(s): bilateral: EOMI Cardiovascular: Rhythm Regular Respiratory: Normal Breath Sounds Gastrointestinal/Abdominal: Soft, Tenderness (epigastric ), No Other ((-) mcburney's, (-) arreola's) Back: No CVA Tenderness Neurological/Psych: Oriented x3, Normal Speech ED Course And Treatment - Laboratory Results Result Diagrams: 03/05/19 10:02 03/05/19 10:02 O2 Sat by Pulse Oximetry: 99 (RA) Pulse Ox Interpretation: Normal Progress Note: Plans: -- labs. -- IV fluids. -- Maalox. -- protonix injection Disposition Counseled Patient/Family Regarding: Studies Performed, Diagnosis, Need For Followup, Rx Given - Disposition Referrals: Charles Garcia MD [Staff Provider] - Disposition: HOME/ ROUTINE Disposition Time: 12:00 Condition: STABLE Additional Instructions: FOLLOW UP WITH YOUR GI PHYSICIAN IN 1-2 DAYS USE PROTONIX DAILY RETURN TO ER IF SYMPTOMS WORSEN Prescriptions: Pantoprazole [Protonix EC Tab] 20 mg PO DAILY #30 ect Instructions: Dyspepsia (DC) Forms: [employer] (Yoruba) Print Language: BULGARIAN - Clinical Impression Clinical Impression: Epigastric abdominal pain - Scribe Statement The provider has reviewed the documentation as recorded by the Renateibmary Hassan Do Provider Attestation: All medical record entries made by the Scribe were at my direction and personally dictated by me. I have reviewed the chart and agree that the record accurately reflects my personal performance of the history, physical exam, medical decision making, and the department course for this patient. I have also personally directed, reviewed, and agree with the discharge instructions and disposition.
[2019-03-05 10:10] LABS: BASO # 0.1 K/uL (0.0-0.2); BASO % 0.7 % (0.0-2.0); EOS # 0.1 K/uL (0.0-0.7); EOS % 1.2 % (0.0-4.0); HEMOGLOBIN 13.9 g/dL (11.0-16.0); LYMPH # 1.7 K/uL (1.0-4.3); MEAN CELL VOLUME 94.4 fL (81.0-99.0); MEAN CORPUSCULAR HEMOGLOBIN 31.9 pg (27.0-31.0); MEAN CORPUSCULAR HGB CONC 33.8 g/dL (33.0-37.0); MEAN PLATELET VOLUME 10.3 fL (7.2-11.7); MONO # 0.6 K/uL (0.0-0.8); NEUT # 8.7 K/uL (1.8-7.0); NEUT % 78.1 % (50.0-75.0); RBC 4.35 Mil/uL (3.80-5.20); RED CELL DISTRIBUTION WIDTH 13.4 % (11.5-14.5); WHITE BLOOD COUNT 11.1 K/uL (4.8-10.8)
[2019-03-05 10:23] LABS: ALB/GLOB RATIO 1.3 (1.0-2.1); ALBUMIN 4.6 g/dL (3.5-5.0); ALT/SGPT 15 U/L (9-52); AST/SGOT 19 U/L (14-36); BLOOD UREA NITROGEN 10 mg/dL (7-17); CALCIUM 10.1 mg/dl (8.6-10.4); GFR NON-AFRICAN AMERICAN > 60; LIPASE 38 U/L (23-300)
[2019-03-05 10:27] LABS: SQUAMOUS EPITHIAL 1 /hpf (0-5); URINE BILIRUBIN NEGATIVE (NEGATIVE); URINE BLOOD 1+ (NEGATIVE); URINE CLARITY Clear (Clear); URINE COLOR Yellow (YELLOW); URINE GLUCOSE (UA) NORMAL (Normal); URINE LEUKOCYTE ESTERASE NEG Leu/uL (Negative); URINE PROTEIN NEGATIVE (NEGATIVE); URINE UROBILINOGEN NORMAL mg/dL (0.2-1.0)
[2019-03-05 10:28] LABS: HCG,QUALITATIVE URINE NEGATIVE (NEGATIVE)
[2019-03-05 11:43] VITALS: BP 135/97; PULSE 71
[2019-03-05 12:15] VITALS: O2SAT 99
== END 2019-03-05 12:25 | disposition home or self-care (01) ==
LOC: C.ER 08:32
DX: R10.13 Epigastric pain (principal)
CPT/HCPCS: 80053; 81001; 83690; 84703; 85025; 96361; 96374; 96375; 99284; C9113; J2270; J7030